=== PATIENT | female | born 1935 | race Caucasian/White ===

== ENCOUNTER → 2016-12-02 | Day surgery (SDC) | payer OTHER ==
[~2016-12-02] MED LIST: ALPRAZOLAM0.5 M3 PO; ALPRAZOLAM0.5 MG PO; AMIODARONE HCL200 MG PO; CALCIUM-600600 MG PO; CARTIA XT180 MG PO; CARVEDILOL25 MG; CEFPROZIL500 MG PO; COREG25 MG PO; COZAAR25 M1 PO; CRANBERRY1 CAP PO; Coumadin5 MG PO; DILTIAZEM 24HR360 MG PO; DILTIAZEM CD240 MG PO; ELIQUIS2.5 M1 PO; ELIQUIS5 M1 PO; FEOSOL325 MG PO; FISH OIL; FISH OIL 500MG500 MG PO; FISH OIL500 M1 PO; FUROSEMIDE40 MG PO; HYDROCODONE BIT1 T11 PO; IBU800 MG PO; IMIPRAMINE50 MG; IMIPRAMINE50 MG PO; K-TAB10 MEQ PO; KLOR-CON M2020 ME1 PO; LOPRESSOR25 MG PO; MACROBID100 M1 PO; MOTRIN800 MG PO; MULTIPLE VITAMI1 CAP; NEXIUM I.V.40 MG PO; NEXIUM40 MG PO; NITROSTAT0.4 MG SL; PANTOPRAZOLE40 M1 PO; PERSANTINE50 MG PO; PLAVIX75 MG PO; PREDNISONE50 MG PO; PREVACID30 MG PO; PROPAFENONE HC150 MG PO; PYRIDIUM200 MG PO; THIORIDAZINE HC50 M1 PO; TOFRANIL50 MG PO; TYLENOL EXTRA500 MG PO; VITAMIN A8000 IU PO; VITAMIN D50000 IU PO; WOMEN'S MULTIVI1 TAB PO; XANAX0.5 MG PO
--- NOTE | ~2016-12-02 | PROC NOTE ---
[place], [place] PROCEDURE NOTE NAME: TRINI WERNER I UNIT #: [id number] ROOM: DOCTOR: MICHAEL GONZALES MD BIRTHDATE: [birth year] DOS: 12/02/2016 PREOPERATIVE DIAGNOSIS: Gastrointestinal bleed, anemia. POSTOPERATIVE DIAGNOSIS: Hiatal hernia. Normal colonoscopy. ENDOSCOPIST: Michael Gonzales MD CORE DRILL OPERATOR: [id number]. ANESTHESIA: MAC. INDICATIONS: This is an 81-year-old lady who is here for EGD and colonoscopy for suspected GI bleed and anemia. The procedure and its complications were explained to the patient in detail preoperatively. Complications that were discussed included but were not limited to, bleeding, colon perforation, stomach perforation, and missed lesions. She agreed to proceed. DESCRIPTION OF PROCEDURE: After identifying the patient, the patient was brought to the endoscopy suite and placed in the left lateral position. After IV sedation was administered, a timeout procedure was called and a bite block was placed. An EGD was performed first. An adult gastroscope was advanced through the mouth into the esophagus, stomach and the first three parts of the duodenum. There was no obvious bleeding site that could be visualized. The scope was retroflexed in the stomach and also at this point no bleeding points were seen. The scope was then withdrawn. There was a small sliding hiatal hernia that was visualized, but again there was no esophageal ulceration or areas of bleeding that could be visualized. The scope was then withdrawn. Attention was then turned towards a colonoscopy, an adult colonoscope was inserted into the anal canal after a digital rectal exam was performed. This was found to be within normal limits. The scope was then advanced sequentially into the rectum, sigmoid colon, descending colon, transverse colon and ascending colon up to the cecum. Upon reaching the cecum, the scope was withdrawn. Total withdrawal time was approximately 6 minutes. There was no obvious mucosal lesion that was visualized that could have been the source of bleeding. This finding was confirmed upon reaching the rectum where internal hemorrhoids, which were nonbleeding were encountered on retroflexion of the scope. The scope was then withdrawn and the patient was taken to the recovery room in stable fashion. There were no complications. Dr. Michael Gonzales, the attending endoscopist, was present throughout the operating case. [place], [place] PROCEDURE NOTE NAME: TRINI WERNER I UNIT #: [id number] ROOM: DOCTOR: MARY LANGLEY,MICHAEL BIRTHDATE: [birth year] Michael Gonzales MD CM:PROCNOTE:PROCEDURE NOTE [id number] MICHEAL GONZALES MD
[2016-12-02 10:30] VITALS: BP 145/78
[2016-12-02 13:05] VITALS: BP 145/78
[2016-12-02 13:20] VITALS: BP 146/78
[2016-12-02 13:28] VITALS: BP 146/89
== END | disposition home or self-care (01) ==
LOC: SDC 12-01 13:15
DX: K64.8 Other hemorrhoids (principal); K92.2 Gastrointestinal hemorrhage, unspecified; K44.9 Diaphragmatic hernia without obstruction or gangrene; D64.9 Anemia, unspecified

== ENCOUNTER 2017-01-05 01:13 | Inpatient (IN) | payer OTHER ==
[~2017-01-05] VITALS: Ht 160 cm; Wt 101.8 kg
[2017-01-05 01:26] VITALS: BP 156/88
[2017-01-05 02:02] LABS: BASO # 0.1 10*3/uL (0.0-0.1); BASO % 0.6 % (0.0-1.0); EOS # 0.6 10*3/uL (0.0-0.4); EOS % 6.5 % (1.0-4.0); HEMATOCRIT 35.8 % (37.0-47.0); HEMOGLOBIN 10.9 g/dl (12.0-16.0); LYMPH # 1.4 10*3/uL (1.3-4.4); LYMPH % 15.2 % (27.0-41.0); MEAN CELL VOLUME 90.2 fl (81.0-99.0); MEAN CORPUSCULAR HGB 27.5 pg (27.0-31.0); MEAN CORPUSCULAR HGB CONC 30.4 g/dl (33.0-37.0); MEAN PLATELET VOLUME 10.1 fl (9.6-12.3); MONO # 0.9 10*3/uL (0.1-1.0); MONO % 9.6 % (3.0-9.0); NEUT # 6.1 10*3/uL (2.3-7.9); NEUT % 67.7 % (47.0-73.0); PLATELET COUNT AUTOMATED 300 10*3/uL (130-400); RED BLOOD COUNT 3.97 10*6/uL (4.10-5.10); RED CELL DISTRI WIDTH 18.5 % (0-14.5)
[2017-01-05 02:19] LABS: ALBUMIN 3.3 gm/dl (3.1-4.5); BILIRUBIN, TOTAL 0.2 mg/dl (0.2-1.0); POTASSIUM 4.4 mmol/L (3.5-5.1); TOTAL PROTEIN 7.7 gm/dL (6.4-8.2)
[2017-01-05 02:20] LABS: C-REACTIVE PROTEIN 6.63 MG/DL (0-0.3)
[2017-01-05 04:01] LABS: BILIRUBIN NEGATIVE (NEGATIVE); BLOOD 1+ (NEGATIVE); CLARITY CLEAR (CLEAR); COLOR YELLOW (YELLOW); GLUCOSE NEGATIVE (NEGATIVE); KETONE NEGATIVE (NEGATIVE); LEUKO ESTERASE TRACE (NEGATIVE); NITRITE POSITIVE (NEGATIVE); PH 5.5 (5.0-9.0); PROTEIN TRACE (NEGATIVE); UROBILINOGEN 0.2 E.U./dl (0.2-1.0)
[2017-01-05 04:07] LABS: EPITHELIAL CELLS TNTC
[2017-01-05 04:08] LABS: BACTERIA 3+; URINE REFLEX COMMENT YES (NO)
[2017-01-05 05:36] VITALS: BP 113/57
[2017-01-05 05:45] VITALS: BP 113/57
[2017-01-05 05:51] LABS: CKMB 1.7 ng/ml (0.5-3.6)
[2017-01-05 05:53] LABS: ALBUMIN 3.4 gm/dl (3.1-4.5); ALKALINE PHOSPHATASE 97 U/L (45-117); BILIRUBIN, TOTAL 0.2 mg/dl (0.2-1.0); BUN 28 mg/dl (7-24); CARBON DIOXIDE 28 mmol/L (21-32); CHLORIDE 99 mmol/L (98-107); EST GLOM FILT AFRICAN AMERICAN 38 ml/min; FREE T4 1.18 ng/dl (0.76-1.46); GLUCOSE 105 mg/dL (65-99); MAGNESIUM 2.1 mg/dL (1.5-2.1); PHOSPHOROUS 4.3 mg/dL (2.5-4.9); POTASSIUM 4.9 mmol/L (3.5-5.1); SGOT/AST 16 IU/L (3-35); SGPT/ALT 18 U/L (12-78); SODIUM 135 mmol/L (136-145); TOTAL PROTEIN 7.6 gm/dL (6.4-8.2)
[2017-01-05 05:58] LABS: TROPONIN I < 0.015 ng/ml (<0.045)
[2017-01-05 06:00] LABS: BASO # 0.1 10*3/uL (0.0-0.1); BASO % 0.6 % (0.0-1.0); EOS # 0.3 10*3/uL (0.0-0.4); EOS % 3.5 % (1.0-4.0); HEMATOCRIT 35.7 % (37.0-47.0); HEMOGLOBIN 11.1 g/dl (12.0-16.0); IG # 0.1 10*3/uL (0.0-0.1); LYMPH # 1.2 10*3/uL (1.3-4.4); LYMPH % 12.2 % (27.0-41.0); MEAN CELL VOLUME 90.4 fl (81.0-99.0); MEAN CORPUSCULAR HGB 28.1 pg (27.0-31.0); MEAN CORPUSCULAR HGB CONC 31.1 g/dl (33.0-37.0); MEAN PLATELET VOLUME 10.1 fl (9.6-12.3); MONO # 0.8 10*3/uL (0.1-1.0); MONO % 8.2 % (3.0-9.0); NEUT # 7.2 10*3/uL (2.3-7.9); PLATELET COUNT AUTOMATED 312 10*3/uL (130-400); RED BLOOD COUNT 3.95 10*6/uL (4.10-5.10); RED CELL DISTRI WIDTH 18.5 % (0-14.5); WHITE BLOOD COUNT 9.5 10*3/uL (4.8-10.8)
[2017-01-05 06:30] LABS: PROTHROMBIN TIME 10.5 SECONDS (9.0-12.4)
[2017-01-05 08:00] VITALS: BP 140/81
[2017-01-05 08:09] LABS: VITAMIN D, 25-HYDROXY 50.2 ng/mL (30-100)
[2017-01-05 08:19] LABS: FOLIC ACID > 24.00 ng/mL (>5.38)
[2017-01-05] MEDS ORDERED: FISH OIL500 M2 PO (09:17)
[2017-01-05] MEDS ORDERED: CARTIA XT240 MG PO (09:18)
[2017-01-05] MEDS ORDERED: FERROUS GLUCON324 M1 PO (09:18)
[2017-01-05 12:00] VITALS: BP 142/71
[2017-01-05 12:08] LABS: CKMB 1.6 ng/ml (0.5-3.6)
[2017-01-05 16:00] VITALS: BP 124/75
== END 2017-01-05 16:34 | disposition short-term general hospital (02) | DRG 871 ==
LOC: ED 01:13 → 5E 04:40 → EDHOLD 04:40 → 5E 04:48
PROVIDERS: Emergency Medicine Emergency Medical Services; Family Medicine
DX: A41.9 Sepsis, unspecified organism (principal); N17.0 Acute kidney failure with tubular necrosis; S32.030A Wedge compression fracture of third lumbar vertebra, initial encounter for closed fracture; E87.1 Hypo-osmolality and hyponatremia; I13.0 Hypertensive heart and chronic kidney disease with heart failure and stage 1 through stage 4 chronic kidney disease, or unspecified chronic kidney disease; I50.32 Chronic diastolic (congestive) heart failure; E44.1 Mild protein-calorie malnutrition; N30.01 Acute cystitis with hematuria; R65.20 Severe sepsis without septic shock; D64.9 Anemia, unspecified; D72.810 Lymphocytopenia; M54.5 Low back pain; G89.29 Other chronic pain; I25.10 Atherosclerotic heart disease of native coronary artery without angina pectoris; F41.9 Anxiety disorder, unspecified; N18.9 Chronic kidney disease, unspecified; E66.01 Morbid (severe) obesity due to excess calories; J44.9 Chronic obstructive pulmonary disease, unspecified; K21.9 Gastro-esophageal reflux disease without esophagitis; I48.0 Paroxysmal atrial fibrillation; Z79.01 Long term (current) use of anticoagulants; Z79.899 Other long term (current) drug therapy; Z88.0 Allergy status to penicillin; Z88.2 Allergy status to sulfonamides; Z88.6 Allergy status to analgesic agent; Z88.1 Allergy status to other antibiotic agents; Z90.710 Acquired absence of both cervix and uterus; Z82.49 Family history of ischemic heart disease and other diseases of the circulatory system; Z82.0 Family history of epilepsy and other diseases of the nervous system; Z83.49 Family history of other endocrine, nutritional and metabolic diseases; Z83.3 Family history of diabetes mellitus; Z84.1 Family history of disorders of kidney and ureter; Z80.3 Family history of malignant neoplasm of breast; Z80.0 Family history of malignant neoplasm of digestive organs; Z82.61 Family history of arthritis; Z68.38 Body mass index [BMI] 38.0-38.9, adult

== ENCOUNTER → 2021-06-11 | Outpatient (CLI) | payer MEDICARE ==
[~2021-06-11] MED LIST changes: +CARTIA XT240 MG PO; +FERROUS GLUCON324 MG PO; +FISH OIL CONC1000 M2 PO; +IRON325 M1 PO; +METOPROLOL SUCC50 M2 PO; +POTASSIUM600 MG PO; +PROAIR HFA8.5 GM INH; +TOFRANIL10 MG PO; +VITAMIN C100 M3 PO; +VITAMIN D-40010 MCG PO
== END | disposition home or self-care (01) ==
LOC: CARD 00:04
PROVIDERS: ATTEND Internal Medicine
DX: R06.02 Shortness of breath (principal); R06.00 Dyspnea, unspecified

== ENCOUNTER → 2021-08-23 | Outpatient (CLI) | payer MEDICARE | END | disposition home or self-care (01) | LOC: RAD 14:43 | PROVIDERS: ATTEND Family Medicine | DX: S39.92XA Unspecified injury of lower back, initial encounter (principal); M47.816 Spondylosis without myelopathy or radiculopathy, lumbar region; G95.29 Other cord compression; M48.061 Spinal stenosis, lumbar region without neurogenic claudication; M25.78 Osteophyte, vertebrae; X58.XXXA Exposure to other specified factors, initial encounter; Y93.89 Activity, other specified; Y92.89 Other specified places as the place of occurrence of the external cause; Y99.8 Other external cause status ==

== ENCOUNTER → 2021-09-21 | Outpatient (CLI) | payer MEDICARE | END | disposition home or self-care (01) | LOC: RAD 10:27 | PROVIDERS: ATTEND Family Medicine | DX: J98.4 Other disorders of lung (principal); M19.012 Primary osteoarthritis, left shoulder ==

== ENCOUNTER 2024-04-02 15:20 | Emergency (ER) | payer MEDICARE ==
[~2024-04-02 15:20] MED LIST changes: +APPLE CIDER VI300 MG PO; +DERMACINRX FOL1 EAC1 PO; +FISH OIL 1,2001 EACH PO; +FOSFOMYCIN TROME3 GM PO; +GARLIC OIL1000 M1 PO; +GEMTESA75 MG PO; +LASIX20 MG PO; +NITROGLYCERIN0.4 MG SL; +PROTONIX40 MG PO; +ZINC50 M4 PO
[2024-04-02] MEDS ORDERED: ATROPINE SULFATE 1 MG/10 ML SYR IV ONE (15:40)
[2024-04-02] MEDS ORDERED: DEXTROSE IV SCH (15:50)
[2024-04-02] MEDS ORDERED: DOPAMINE IV SCH (15:50)
[2024-04-02 15:58] LABS: BASO # 0.1 10*3/uL (0.0-0.1); EOS # 0.3 10*3/uL (0.0-0.4); EOS % 4.4 % (1.0-4.0); HEMATOCRIT 34.4 % (37.0-47.0); LYMPH # 1.3 10*3/uL (1.3-4.4); LYMPH % 18.6 % (27.0-41.0); MEAN CELL VOLUME 93.7 fl (81.0-99.0); MEAN CORPUSCULAR HGB 27.5 pg (27.0-31.0); MEAN CORPUSCULAR HGB CONC 29.4 g/dl (33.0-37.0); MEAN PLATELET VOLUME 8.8 fl (9.6-12.3); MONO # 0.6 10*3/uL (0.1-1.0); MONO % 8.4 % (3.0-9.0); NEUT # 4.8 10*3/uL (2.3-7.9); NEUT % 66.8 % (47.0-73.0); NUCLEATED RED BLOOD CELL 0.3 % (0.0-0.0); PLATELET COUNT AUTOMATED 376 10*3/uL (130-400); RED BLOOD COUNT 3.67 10*6/uL (4.10-5.10); RED CELL DISTRI WIDTH 17.9 % (0-14.5); WHITE BLOOD COUNT 7.1 10*3/uL (4.8-10.8)
[2024-04-02 16:09] LABS: ACT PARTIAL THROMBO TIME 32.5 SECONDS (20.0-32.1)
[2024-04-02 16:27] LABS: POTASSIUM 4.6 mmol/L (3.4-5.1)
[2024-04-02] MEDS ORDERED: Lactated Ringer's Solution 1,000 ML IV SCH ×2 (16:50→17:35)
[2024-04-02] MEDS ORDERED: EPINEPHrine Hydrochloride 1 MG,IV 1 EA in SODIUM CHLORIDE 0.9% 250 ML IV SCH (16:50)
[2024-04-02] MEDS ORDERED: Ondansetron Hydrochloride 4 MG/2 ML VIAL IV ONE ×2 (17:20→17:45)
[2024-04-02] MEDS ORDERED: SODIUM CHLORIDE 0.9% IV SCH ×2 (17:45→19:40)
[2024-04-02] MEDS ORDERED: EPINEPHRINE HYDROCHLORIDE IV SCH ×2 (17:45→19:40)
[2024-04-02 17:57] LABS: VENOUS BLOOD GAS O2 SAT 99.1 % (60.0-85.0)
[2024-04-02] MEDS ORDERED: CALCIUM GLUCONATE 1 GM/10 ML VIAL IV ONE (18:40)
[2024-04-02] MEDS ORDERED: Glucagon Hydrochloride 1 MG SYR IV ONE (18:40)
[2024-04-02 20:07] VITALS: BP 111/47
[2024-04-04] MEDS ORDERED: EPINEPHrine Hydrochloride 1 MG/10 ML SYR IV ONE (15:02)
[2024-04-04] MEDS ORDERED: Lactated Ringer's Solution 1,000 ML BAG IV ONE (15:02)
== END 2024-04-02 21:10 | disposition short-term general hospital (02) ==
LOC: ED
PROVIDERS: Emergency Medicine
DX: I95.9 Hypotension, unspecified (principal); R74.02 Elevation of levels of lactic acid dehydrogenase [LDH]; R00.1 Bradycardia, unspecified; R55 Syncope and collapse; I48.91 Unspecified atrial fibrillation; I50.9 Heart failure, unspecified; E87.1 Hypo-osmolality and hyponatremia; F41.9 Anxiety disorder, unspecified; D63.1 Anemia in chronic kidney disease; J44.9 Chronic obstructive pulmonary disease, unspecified; I25.10 Atherosclerotic heart disease of native coronary artery without angina pectoris; K21.9 Gastro-esophageal reflux disease without esophagitis; I13.0 Hypertensive heart and chronic kidney disease with heart failure and stage 1 through stage 4 chronic kidney disease, or unspecified chronic kidney disease; N18.9 Chronic kidney disease, unspecified; Z88.0 Allergy status to penicillin; Z88.1 Allergy status to other antibiotic agents; Z88.2 Allergy status to sulfonamides; Z91.040 Latex allergy status; Z91.048 Other nonmedicinal substance allergy status; Z88.8 Allergy status to other drugs, medicaments and biological substances; Z88.6 Allergy status to analgesic agent; Z90.49 Acquired absence of other specified parts of digestive tract; Z90.710 Acquired absence of both cervix and uterus; Z95.5 Presence of coronary angioplasty implant and graft; Z98.890 Other specified postprocedural states

== ENCOUNTER → 2024-05-21 | Outpatient (CLI) | payer MEDICARE | END | disposition home or self-care (01) | LOC: CARD 12:36 | PROVIDERS: ATTEND Internal Medicine Cardiovascular Disease | DX: I34.0 Nonrheumatic mitral (valve) insufficiency (principal); I50.32 Chronic diastolic (congestive) heart failure; I48.0 Paroxysmal atrial fibrillation; I25.10 Atherosclerotic heart disease of native coronary artery without angina pectoris ==

== ENCOUNTER → 2025-03-05 | Outpatient (CLI) | payer MEDICARE | END | disposition home or self-care (01) | LOC: US 13:23 | PROVIDERS: ATTEND Family Medicine | DX: I73.89 Other specified peripheral vascular diseases (principal); M79.652 Pain in left thigh; I10 Essential (primary) hypertension; E11.9 Type 2 diabetes mellitus without complications ==

== ENCOUNTER → 2025-04-01 | Outpatient (CLI) | payer MEDICARE ==
[~2025-04-01] MED LIST changes: +IOHEXOL 350 MG/ML 100 ML VIAL IV ONE; +SODIUM CHLORIDE 0.9% 100 ML BAG IV ONE
[2025-04-01 11:23] LABS: BUN 22.0 mg/dl (9-23); SGPT/ALT 14.0 U/L (5-49)
== END | disposition home or self-care (01) ==
LOC: LAB 10:39 → CT 10:39
PROVIDERS: ATTEND Family Medicine
DX: I73.9 Peripheral vascular disease, unspecified (principal)

== ENCOUNTER → 2025-04-15 | Outpatient (CLI) | payer MEDICARE ==
[~2025-04-15] MED LIST changes: +SODIUM CHLORIDE 0.9% 100 ML IV ONE
== END | disposition home or self-care (01) ==
LOC: CT 13:00
PROVIDERS: ATTEND Family Medicine
DX: K42.9 Umbilical hernia without obstruction or gangrene (principal); K44.9 Diaphragmatic hernia without obstruction or gangrene; K76.0 Fatty (change of) liver, not elsewhere classified; J98.11 Atelectasis; I51.7 Cardiomegaly; K59.00 Constipation, unspecified; I73.9 Peripheral vascular disease, unspecified; R60.0 Localized edema